=== PATIENT | female | born 1990 ===

== ENCOUNTER 2023-06-11 05:58 | Inpatient (IN) | payer SELFPAY ==
[2023-06-11] MEDS ORDERED: Sodium Chloride 0.9% 10 ML Syringe FLUSH PRN (07:34)
[2023-06-11] MEDS ORDERED: Sodium Chloride 0.9% 2.5 ML Syringe FLUSH PRN (07:34)
[2023-06-11] MEDS ORDERED: Nalbuphine 10 MG/0.5 ML Syringe IVPUSH PRN (07:34)
[2023-06-11] MEDS ORDERED: Sodium Chloride 0.9% 20 ML SDV IV PRN (07:34)
[2023-06-11] MEDS ORDERED: Water For Irrigation,Sterile 1,000 ML Container IRR PRN (07:34)
[2023-06-11] MEDS ORDERED: Misoprostol 200 MCG Tab PO PRN (07:34)
[2023-06-11] MEDS ORDERED: Methylergonovine 0.2 MG/1 ML Amp IM PRN (07:34)
[2023-06-11] MEDS ORDERED: Lidocaine 1% 50 ML MDV INJECT PRN (07:34)
[2023-06-11] MEDS ORDERED: Ondansetron 4 MG/2 ML SDV IVPUSH PRN (07:34)
[2023-06-11] MEDS ORDERED: Carboprost Tromethamine 250 MCG/1 mL Vial IM PRN (07:34)
[2023-06-11] MEDS ORDERED: Tranexamic Acid IN NACL,ISO-OS 1,000 MG in Premix Bag 1 BAG IV PRN ×2 (07:34)
[2023-06-11] MEDS ORDERED: Ampicillin 2 GM in Sodium Chloride 0.9% 100 ML IV ONE (07:43)
[2023-06-11] MEDS ORDERED: Ampicillin 1 GM in Sodium Chloride 0.9% 50 ML IV SCH (07:45)
[2023-06-11] MEDS ORDERED: Lactated Ringers 1,000 ML IV SCH (07:45)
[2023-06-11] MEDS ORDERED: Oxytocin/0.9 % Sodium Chloride 30 UNIT/500 ML BAG IV SCH (07:45)
[2023-06-11 08:16] LABS: HEMATOCRIT 40.4 % (37.0-47.0); HEMOGLOBIN 14.4 g/dL (12.0-16.0); MEAN CORPUSCULAR HEMOGLOBIN 31.2 pg (28.0-32.0); MEAN CORPUSCULAR HGB CONC 35.6 g/dL (32.0-36.0); MEAN CORPUSCULAR VOLUME 87.4 fL (83.0-99.0); MEAN PLATELET VOLUME 11.2 fL (9.4-12.3); PLATELET COUNT,PLT 208 K/uL (150-400); RED BLOOD CELL COUNT 4.62 M/uL (4.10-5.30); WHITE BLOOD CELL COUNT,WBC 8.56 K/uL (3.9-11.3)
[2023-06-11] MEDS ORDERED: ePHEDrine 50 MG/ML SDV IVPUSH PRN ×2 (08:19)
[2023-06-11] MEDS ORDERED: Phenylephrine HCl 0.5 MG/5 ML AMP IVPUSH PRN (08:19)
[2023-06-11] MEDS ORDERED: Ropivacaine HCl/PF 400 MG in Premix Bag 1 BAG EPIDUR SCH (08:30)
[2023-06-11] MEDS: Ampicillin 1 GM in Sodium Chloride 0.9% 50 ML IV SCH ×2 (12:05→15:55)
[2023-06-11] MEDS ORDERED: Witch Hazel Medicated Pads 40/Jar TOP ONE (17:00)
[2023-06-11] MEDS ORDERED: Benzocaine/Menthol 20%-0.5% Spray 78 GM Cannister ONE (17:00)
[2023-06-11] MEDS ORDERED: Benzocaine/Menthol 20%-0.5% Spray 78 GM Cannister TOP PRN (17:47)
[2023-06-11] MEDS ORDERED: Witch Hazel Medicated Pads 40/Jar TOP PRN (17:47)
[2023-06-11] MEDS ORDERED: Lanolin 100% Cream 7 GM Tube TOP PRN (17:47)
[2023-06-11] MEDS ORDERED: Ibuprofen 800 MG Tab PO PRN (17:47)
[2023-06-11] MEDS ORDERED: Acetaminophen 500 MG Tab PO PRN (17:47)
[2023-06-11] MEDS ORDERED: Bisacodyl 10 MG Supp RECTAL PRN (17:47)
[2023-06-11] MEDS ORDERED: Docusate Sodium 100 MG Cap PO PRN (17:47)
[2023-06-11] MEDS ORDERED: Ondansetron 4 MG/2 ML SDV IVPUSH ONE (21:24)
[2023-06-12 06:19] LABS: HEMATOCRIT 33.3 % (37.0-47.0)
== END 2023-06-13 20:30 | disposition home or self-care (01) | DRG 807 ==
LOC: MW.OBCHECK 05:58 → MW.OB 05:59 → MW.OBCHECK 06:32 → MW.OB 06:35 → OBSVTOIN 16:48 → MW.OB 21:07
PROVIDERS: ADMIT Obstetrics & Gynecology Obstetrics; ATTEND Obstetrics & Gynecology Obstetrics
PROC: 10E0XZZ Delivery of Products of Conception, External Approach (ICD-10-PCS; principal; 2023-06-11)
PROC: 0HQ9XZZ Repair Perineum Skin, External Approach (ICD-10-PCS; 2023-06-11)
DX: O42.02 Full-term premature rupture of membranes, onset of labor within 24 hours of rupture (principal); O99.824 Streptococcus B carrier state complicating childbirth; O70.0 First degree perineal laceration during delivery; O69.81X0 Labor and delivery complicated by cord around neck, without compression, not applicable or unspecified; Z37.0 Single live birth; Z3A.37 37 weeks gestation of pregnancy
CPT/HCPCS: 36415; 59025; 59409; 84112; 85014; 85018; 85027; 86592; 86850; 86900; 86901; A9270-GY; J0290; J2300; J2405; J2590; J3490; J7120